=== PATIENT | male | born 1965 | race Two or more races ===

== ENCOUNTER 2022-08-22 13:17 | Inpatient (IN) | payer MEDICARE, OTHER ==
[~2022-08-22] VITALS: Ht 175.3 cm; Wt 105.0 kg
[2022-08-22] MEDS ORDERED: ACYC-138 PO (13:44)
[2022-08-22] MEDS ORDERED: DABI150C2 PO (14:00)
[2022-08-22] MEDS ORDERED: ROSU10TA72 PO (14:00)
[2022-08-22] MEDS ORDERED: BISA-151 PO (14:00)
[2022-08-22] MEDS ORDERED: HYDR30CR44 TP (14:00)
[2022-08-22] MEDS ORDERED: ABAC1TAB15 PO (14:00)
[2022-08-22] MEDS ORDERED: TERA1CAP53 PO (14:00)
[2022-08-22] MEDS ORDERED: DARU1TAB PO (14:00)
[2022-08-22] MEDS ORDERED: CYAN-11 IM (14:00)
[2022-08-22] MEDS ORDERED: MEMA10TA55 PO (14:00)
[2022-08-22] MEDS ORDERED: INSU100V52 SQ (14:00)
[2022-08-22] MEDS ORDERED: PREG200C PO (14:00)
[2022-08-22] MEDS ORDERED: OXCA150T27 PO (14:00)
[2022-08-22] MEDS ORDERED: DULO-113 PO (14:00)
[2022-08-22] MEDS ORDERED: INSU100I47 SQ (14:00)
[2022-08-22] MEDS ORDERED: HYDR-3818 PO (14:00)
[2022-08-22] MEDS ORDERED: PANT-31 PO (14:00)
[2022-08-22] MEDS ORDERED: NALO4SPR NASAL (14:12)
[2022-08-22] MEDS ORDERED: MAGN-169 PO (14:12)
[2022-08-22] MEDS ORDERED: BUPR1FIL53 SL (14:12)
[2022-08-22] MEDS ORDERED: LACT10SO32 PO (14:12)
[2022-08-22] MEDS ORDERED: ERGO500054 PO (14:12)
[2022-08-22] MEDS ORDERED: PEG3350 POWDER MISC (14:12)
[2022-08-22] MEDS ORDERED: KETOROLAC 10 MG TAB PO (14:12)
[2022-08-22] MEDS ORDERED: SENNA 8.6 MG PO (14:12)
[2022-08-22] MEDS ORDERED: MORPHINE SULFATE 2 MG/ML SYRINGE IVP ONE (14:30)
[2022-08-22] MEDS ORDERED: SODIUM CHLORIDE 0.9% 1,000 ML IV ONE ×3 (14:30→16:15)
[2022-08-22] MEDS ORDERED: ONDANSETRON HCL 4 MG/2 ML VIAL IVP ONE (14:30)
[2022-08-22 15:02] LABS: BASOPHILS % (AUTO) 0.7 % (0.0-2.0); EOSINOPHILS % (AUTO) 0.5 % (1.0-6.0); HEMATOCRIT 46.5 % (41-53); HEMOGLOBIN 15.5 g/dL (13.5-17.5); LYMPHOCYTES # (AUTO) 0.8 K/uL (1.0-4.8); LYMPHOCYTES % (AUTO) 9.1 % (22.0-44.0); MEAN CORPUSCULAR HEMOGLOBIN 30.9 pg (26.0-34.0); MEAN CORPUSCULAR HGB CONC 33.2 G/dL (31.0-37.0); MEAN CORPUSCULAR VOLUME 93 fL (80-100); MONOCYTES # (AUTO) 0.4 K/uL (0.1-1.0); MONOCYTES % (AUTO) 5.3 % (2.0-9.0); NEUTROPHILS # (AUTO) 7.1 K/uL (1.8-7.7); NEUTROPHILS % (AUTO) 84.4 % (40.0-70.0); PLATELET COUNT (AUTO) 224 K/uL (150-450); RED CELL DISTRIBUTION WIDTH 14.3 % (11.5-14.5)
[2022-08-22 15:58] LABS: CREATININE 1.46 mg/dL (0.60-1.30); POTASSIUM 4.7 mmol/L (3.5-5.1)
[2022-08-22 16:03] LABS: ALBUMIN 3.9 g/dL (3.4-5.0); BILIRUBIN,TOTAL 0.6 mg/dL (0.1-1.0); TOTAL PROTEIN, SERUM 8.5 g/dL (6.4-8.2)
[2022-08-22 16:11] LABS: COVID AG,FIA SOURCE NASOPHARYNGEAL
[2022-08-22] MEDS ORDERED: ONDANSETRON HCL 4 MG/2 ML VIAL IVP PRN ×2 (16:15→19:15)
[2022-08-22] MEDS ORDERED: MORPHINE SULFATE 2 MG/ML SYRINGE IVP PRN ×2 (16:15→19:15)
[2022-08-22] MEDS ORDERED: BISACODYL 5 MG EC TABLET PO PRN (19:00)
[2022-08-22] MEDS ORDERED: ALBUTEROL SULFATE 2.5 MG/0.5 ML NEB SOLUTION NEB PRN (19:15)
[2022-08-22] MEDS ORDERED: ZOLPIDEM TARTRATE 5 MG TABLET PO PRN (19:15)
[2022-08-22] MEDS ORDERED: IPRATROPIUM BROMIDE 0.5 MG/2.5 ML NEB SOLUTION NEB PRN (19:15)
[2022-08-22] MEDS ORDERED: MAGNESIUM HYDROXIDE SUSPENSION 30 ML UDCUP PO PRN (19:15)
[2022-08-22] MEDS ORDERED: BISACODYL 10 MG RECTAL RECTAL SUPPOSITORY PR PRN (19:15)
[2022-08-22] MEDS ORDERED: ACETAMINOPHEN 325 MG TABLET PO PRN (19:15)
[2022-08-22] MEDS ORDERED: MEMANTINE HCL 10 MG TABLET PO SCH (21:00)
[2022-08-22 21:03] VITALS: BP 111/72
[2022-08-22] MEDS: HYDROCODONE/ACETAMINOPHEN 5-325 MG TABLET PO PRN (23:26)
[2022-08-22] MEDS: DABIGATRAN ETEXILATE MESYLATE 150 MG CAPSULE PO SCH (23:26)
[2022-08-22] MEDS: DULoxetine HCL 60 MG CAPSULE PO SCH (23:26)
[2022-08-22] MEDS: MEMANTINE HCL 10 MG TABLET PO SCH (23:26)
[2022-08-23 04:49] VITALS: BP 106/62
[2022-08-23 08:28] VITALS: BP 102/65
[2022-08-23] MEDS ORDERED: [UNRECOGNIZED DRUG - OTHER] PO SCH (09:00)
[2022-08-23] MEDS ORDERED: PANTOPRAZOLE SODIUM 40 MG DR TABLET PO SCH (09:00)
[2022-08-23] MEDS: MEMANTINE HCL 10 MG TABLET PO SCH ×2 (09:04→23:34)
[2022-08-23] MEDS: TERAZOSIN HCL 1 MG CAPSULE PO SCH (09:04)
[2022-08-23] MEDS: DABIGATRAN ETEXILATE MESYLATE 150 MG CAPSULE PO SCH ×2 (09:04→23:33)
[2022-08-23] MEDS: ACYCLOVIR 800 MG TABLET PO SCH (09:04)
[2022-08-23] MEDS: DULoxetine HCL 60 MG CAPSULE PO SCH ×2 (09:04→23:34)
[2022-08-23] MEDS: PANTOPRAZOLE SODIUM 40 MG DR TABLET PO SCH (09:05)
[2022-08-23] MEDS: OXcarbazepine 300 MG TABLET PO SCH (09:05)
[2022-08-23] MEDS: HYDROCORTISONE 10 MG TABLET PO SCH (09:07)
[2022-08-23] MEDS ORDERED: KETO10TA2 PO ×2 (11:17→15:41)
[2022-08-23] MEDS ORDERED: POLY510P31 PO (11:17)
[2022-08-23] MEDS ORDERED: SENN-187 PO (11:17)
[2022-08-23 11:38] VITALS: BP 103/67
[2022-08-23 11:41] LABS: BASOPHILS % (AUTO) 1.1 % (0.0-2.0); EOSINOPHILS % (AUTO) 3.1 % (1.0-6.0); HEMATOCRIT 43.2 % (41-53); HEMOGLOBIN 14.3 g/dL (13.5-17.5); LYMPHOCYTES % (AUTO) 28.2 % (22.0-44.0); MEAN CORPUSCULAR HEMOGLOBIN 31.1 pg (26.0-34.0); MEAN CORPUSCULAR HGB CONC 33.1 G/dL (31.0-37.0); MEAN CORPUSCULAR VOLUME 94 fL (80-100); MONOCYTES # (AUTO) 0.5 K/uL (0.1-1.0); MONOCYTES % (AUTO) 14.2 % (2.0-9.0); NEUTROPHILS # (AUTO) 1.9 K/uL (1.8-7.7); NEUTROPHILS % (AUTO) 53.4 % (40.0-70.0); PLATELET COUNT (AUTO) 160 K/uL (150-450); RED CELL DISTRIBUTION WIDTH 14.4 % (11.5-14.5)
[2022-08-23 12:04] LABS: ANION GAP 5 mmol/L (8-16); CALCIUM, TOTAL 8.5 mg/dL (8.8-10.5); CARBON DIOXIDE 29 mmol/L (22-29); CHLORIDE 105 mmol/L (98-107); CREATININE 1.18 mg/dL (0.60-1.30); GLOMERULAR FILTR. RATE CALC > 60 mL/min (>60); GLUCOSE,RANDOM 118 mg/dL (70-110); SODIUM SERUM 139 mmol/L (136-145); UREA NITROGEN, BLOOD 20 mg/dL (7-18)
[2022-08-23 12:08] LABS: ALANINE AMINOTRANSFERASE 156 U/L (12-78); ALBUMIN 3.3 g/dL (3.4-5.0); ALKALINE PHOSPHATASE 75 U/L (46-116); ASPARTATE AMINOTRANSFERASE 100 U/L (15-37); BILIRUBIN,TOTAL 0.6 mg/dL (0.1-1.0); TOTAL PROTEIN, SERUM 7.6 g/dL (6.4-8.2)
[2022-08-23 12:18] LABS: GLUCOMETER DEV NAME(LOC) 5S.2B; GLUCOSE,POINT OF CARE 120 MG/DL (70-110)
[2022-08-23] MEDS: DEXTROSE 5%-0.45% SODIUM CHL 1,000 ML IV SCH (14:24)
[2022-08-23] MEDS: PREGABALIN 50 MG CAPSULE PO SCH ×2 (16:32→20:29)
[2022-08-23 19:57] VITALS: BP 102/63
[2022-08-23] MEDS: HYDROCODONE/ACETAMINOPHEN 5-325 MG TABLET PO PRN (20:29)
[2022-08-24 00:05] VITALS: BP 117/72
[2022-08-24] MEDS: DEXTROSE 5%-0.45% SODIUM CHL 1,000 ML IV SCH ×2 (03:18→17:52)
[2022-08-24 04:25] VITALS: BP 121/65
[2022-08-24 07:30] VITALS: BP 132/76
[2022-08-24] MEDS: DULoxetine HCL 60 MG CAPSULE PO SCH ×2 (09:10→20:10)
[2022-08-24] MEDS: PREGABALIN 50 MG CAPSULE PO SCH ×3 (09:10→20:10)
[2022-08-24] MEDS: DABIGATRAN ETEXILATE MESYLATE 150 MG CAPSULE PO SCH ×2 (09:10→20:10)
[2022-08-24] MEDS: ACYCLOVIR 800 MG TABLET PO SCH (09:10)
[2022-08-24] MEDS: TERAZOSIN HCL 1 MG CAPSULE PO SCH (09:11)
[2022-08-24] MEDS: MEMANTINE HCL 10 MG TABLET PO SCH ×2 (09:11→20:10)
[2022-08-24] MEDS: OXcarbazepine 300 MG TABLET PO SCH (09:11)
[2022-08-24] MEDS: PANTOPRAZOLE SODIUM 40 MG DR TABLET PO SCH (09:11)
[2022-08-24] MEDS: HYDROCORTISONE 10 MG TABLET PO SCH (09:11)
[2022-08-24 11:29] VITALS: BP 154/96
[2022-08-24 15:20] VITALS: BP 113/78
[2022-08-24 19:21] VITALS: BP 117/75
[2022-08-25 01:08] VITALS: BP 127/83
[2022-08-25 04:15] VITALS: BP 117/75
[2022-08-25] MEDS: ACYCLOVIR 800 MG TABLET PO SCH (09:17)
[2022-08-25] MEDS: TERAZOSIN HCL 1 MG CAPSULE PO SCH (09:17)
[2022-08-25] MEDS: DULoxetine HCL 60 MG CAPSULE PO SCH (09:17)
[2022-08-25] MEDS: OXcarbazepine 300 MG TABLET PO SCH (09:17)
[2022-08-25] MEDS: DABIGATRAN ETEXILATE MESYLATE 150 MG CAPSULE PO SCH (09:17)
[2022-08-25] MEDS: HYDROCORTISONE 10 MG TABLET PO SCH (09:17)
[2022-08-25] MEDS: PANTOPRAZOLE SODIUM 40 MG DR TABLET PO SCH (09:17)
[2022-08-25] MEDS: MEMANTINE HCL 10 MG TABLET PO SCH (09:17)
[2022-08-25] MEDS: PREGABALIN 50 MG CAPSULE PO SCH ×2 (09:17→15:26)
[2022-08-25] MEDS: DEXTROSE 5%-0.45% SODIUM CHL 1,000 ML IV SCH (11:00)
[2022-08-25 11:27] VITALS: BP 128/65
[2022-08-25 13:09] LABS: BASOPHILS % (AUTO) 0.9 % (0.0-2.0); EOSINOPHILS % (AUTO) 1.4 % (1.0-6.0); HEMATOCRIT 44.7 % (41-53); HEMOGLOBIN 14.8 g/dL (13.5-17.5); LYMPHOCYTES # (AUTO) 1.1 K/uL (1.0-4.8); LYMPHOCYTES % (AUTO) 21.4 % (22.0-44.0); MEAN CORPUSCULAR HEMOGLOBIN 30.9 pg (26.0-34.0); MEAN CORPUSCULAR HGB CONC 33.2 G/dL (31.0-37.0); MEAN CORPUSCULAR VOLUME 93 fL (80-100); MONOCYTES # (AUTO) 0.4 K/uL (0.1-1.0); MONOCYTES % (AUTO) 7.6 % (2.0-9.0); NEUTROPHILS # (AUTO) 3.6 K/uL (1.8-7.7); NEUTROPHILS % (AUTO) 68.7 % (40.0-70.0); PLATELET COUNT (AUTO) 167 K/uL (150-450); RED BLOOD CELL COUNT(AUTO) 4.79 MIL/uL (4.50-5.90); RED CELL DISTRIBUTION WIDTH 13.7 % (11.5-14.5)
[2022-08-25 13:20] LABS: ANION GAP 7 mmol/L (8-16); CALCIUM, TOTAL 9.2 mg/dL (8.8-10.5); CARBON DIOXIDE 27 mmol/L (22-29); CHLORIDE 104 mmol/L (98-107); CREATININE 1.21 mg/dL (0.60-1.30); GLOMERULAR FILTR. RATE CALC > 60 mL/min (>60); GLUCOSE,RANDOM 165 mg/dL (70-110); POTASSIUM 4.1 mmol/L (3.5-5.1); SODIUM SERUM 138 mmol/L (136-145); UREA NITROGEN, BLOOD 10 mg/dL (7-18)
[2022-08-25 13:30] LABS: ALANINE AMINOTRANSFERASE 120 U/L (12-78); ALBUMIN 3.3 g/dL (3.4-5.0); ALKALINE PHOSPHATASE 80 U/L (46-116); ASPARTATE AMINOTRANSFERASE 63 U/L (15-37); BILIRUBIN,TOTAL 0.3 mg/dL (0.1-1.0); TOTAL PROTEIN, SERUM 7.7 g/dL (6.4-8.2)
[2022-08-29] MEDS ORDERED: ERGOCALCIFEROL (VIT D2) 50,000 UNITS [1,250 MCG] CAPSULE PO SCH (09:00)
[2022-09-21] MEDS ORDERED: CYANOCOBALAMIN 1,000 MCG/ML VIAL IM SCH (09:00)
== END 2022-08-25 19:12 | disposition home or self-care (01) | DRG 390 ==
LOC: EMS 13:50 → 5S 18:55
PROVIDERS: ADMIT Hospitalist; ATTEND Hospitalist
PROC: 0D9670Z Drainage of Stomach with Drainage Device, Via Natural or Artificial Opening (ICD-10-PCS; principal; 2022-08-22)
DX: K56.600 Partial intestinal obstruction, unspecified as to cause (principal); I10 Essential (primary) hypertension; E11.9 Type 2 diabetes mellitus without complications; K76.0 Fatty (change of) liver, not elsewhere classified; N20.0 Calculus of kidney; Z20.822 Contact with and (suspected) exposure to COVID-19; Z88.2 Allergy status to sulfonamides; Z88.0 Allergy status to penicillin; Z95.828 Presence of other vascular implants and grafts; Z83.3 Family history of diabetes mellitus; Z86.718 Personal history of other venous thrombosis and embolism; Z87.442 Personal history of urinary calculi; Z79.899 Other long term (current) drug therapy; Z79.4 Long term (current) use of insulin; Z90.49 Acquired absence of other specified parts of digestive tract
CPT/HCPCS: 74018; 74176; 80053; 82962; 83690; 85025; 99285; J2270; J2405; J7030; 36415-L1; 36415-TC

== ENCOUNTER 2023-04-16 11:31 | Emergency (ER) | payer MEDICARE, OTHER ==
[~2023-04-16] VITALS: Ht 175.3 cm; Wt 103.2 kg
[~2023-04-16 11:31] MED LIST: ABAC1TAB15 PO; ACYC-138 PO; BISA-151 PO; BUPR1FIL53 SL; CYAN-11 IM; DABI150C2 PO; DARU1TAB PO; DULO-113 PO; ERGO500054 PO; HYDR-3818 PO; HYDR30CR44 TP; INSU100I47 SQ; INSU100V52 SQ; KETO10TA2 PO; LACT10SO85 PO; MAGN-169 PO; MEMA10TA55 PO; NALO4SPR NASAL; OXCA150T27 PO; PANT-31 PO; POLY510P31 PO; PREG200C PO; ROSU10TA72 PO; SENN-376 PO; TERA1CAP53 PO
[2023-04-16 11:54] VITALS: TEMP 98.8
[2023-04-16] MEDS ORDERED: DOXYCYCLINE HYCLATE 100 MG TABLET PO ONE (12:15)
[2023-04-16] MEDS ORDERED: DOXY-354 PO (12:57)
[2023-04-16 13:21] VITALS: BP 101/64; PULSE 88; RESP 18
== END 2023-04-16 13:30 | disposition home or self-care (01) ==
LOC: EMS 11:31
DX: L08.9 Local infection of the skin and subcutaneous tissue, unspecified (principal); E11.9 Type 2 diabetes mellitus without complications; I10 Essential (primary) hypertension; Z90.49 Acquired absence of other specified parts of digestive tract; Z98.890 Other specified postprocedural states; Z88.0 Allergy status to penicillin; Z88.2 Allergy status to sulfonamides; Z88.8 Allergy status to other drugs, medicaments and biological substances
CPT/HCPCS: 82962; 99283